=== PATIENT | male | born 1950 | race Caucasian/White ===

== ENCOUNTER 2017-02-17 10:24 | Outpatient (CLI) | payer OTHER ==
[~2017-02-17 10:24] MED LIST: AMLODIPINE BES2.5 MG PO; ATORVASTATIN CA20 MG PO; CYCLOBENZAPRINE10 MG PO; FERROUS SULFAT325 M1 PO; HYDROCHLOROTHIA50 MG PO; IBUPROFEN400 MG PO; KLOR-CON M2020 MEQ PO; LISINOPRIL10 MG PO; LORATADINE10 MG PO; METOPROLOL SUCC25 MG PO; MICRO-K 10 EQU10 MEQ PO; NORCO1 TA1 PO; OMEGA 31000 MG; PERCOCET1 TA1 PO; SIMVASTATIN5 MG PO; TYLENOL325 MG PO; VISTARIL25 MG PO
--- NOTE | 2017-02-17 11:55 | DIAGNOSTIC IMAGING REPORT ---
PROCEDURE: CT THORAX ABD PELVIS W/CONT INDICATION: PULMONARY NODULE, history of pancreatitis TECHNIQUE: 150 ml of Isovue 300 injected intravenously and axial images were obtained of the entire thorax, abdomen, and pelvis with sagittal and coronal reformations. COMPARISON: 11/01/2016 FINDINGS: THORAX: Normal thyroid gland. Shoddy paratracheal lymph nodes, but no bulky axillary, supraclavicular, mediastinal, or hilar adenopathy. No anterior or posterior masses. Normal esophagus without hiatal hernia. Moderate coronary artery calcification. Chambers of the heart are normal size. No pericardial effusions. The lungs are clear. Interval resolution of posterior left lower lobe lung nodule seen previously. The airway is patent and branches normally. No pleural effusions. Prominent anterolateral bridging osteophytes in the lower thoracic spine. No suspicious osseous lesions. ABDOMEN: The liver, gallbladder, adrenal glands, spleen, pancreas, kidneys, retroperitoneal vasculature and ureters appear normal. Interval resolution of peripancreatic inflammation. Mild aortic atherosclerotic calcification. No unusual calcifications. No suspicious mass or adenopathy. The stomach and other bowel loops appear normal. No mesenteric inflammation. Intact anterior abdominal wall. No free fluid or free air. PELVIS: Normal appendix, and pelvic small bowel loops. Extensive diverticulosis of the descending and sigmoid colon. Normal partially filled urinary bladder, reproductive structures, pelvic vessels, and lymph nodes. No suspicious adenopathy, soft tissue mass, or free pelvic fluid. 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 Degenerative disc height loss at L5-S1. IMPRESSION: 1. Interval resolution of 1.2 cm left lower lung nodular density, probably infectious/inflammatory. 2. Interval resolution of peripancreatic inflammation. 3. No acute process. 4. Extensive descending and sigmoid colon diverticulosis without acute diverticulitis. All CT scans at this facility use dose modulation, iterative reconstruction, and/or weight-based dosing when appropriate to reduce radiation dose to as low as reasonably achievable.
== END 2017-02-17 23:00 ==
LOC: CT SRH 10:24
DX: R91.1 Solitary pulmonary nodule (principal); K85.20 Alcohol induced acute pancreatitis without necrosis or infection; K57.30 Diverticulosis of large intestine without perforation or abscess without bleeding